=== PATIENT | female | born 1990 | race Caucasian/White ===

== ENCOUNTER → 2018-07-09 | Outpatient (CLI) | payer BC, MEDICAID, OTHER ==
[~2018-07-09] MED LIST: BIRTH CONTROL; BUPR150T6 PO; CEPH500C PO; IBP600T1 PO; PHEN95TA30; PREN1TAB39 PO; PRM25T PO; birth control pill PO; sulfa abx
--- NOTE | 2018-07-09 16:19 | Diagnostic Imaging Report ---
PROCEDURE: US OB SINGLE FETUS <14 WKS. TECHNIQUE: Multiple real-time grayscale images were obtained over the gravid uterus in various projections. INDICATION: dating. There is an intrauterine gestational sac containing a pole. Mundelein-rump length measurement is 2.3 cm consistent with 9 weeks 0 days gestation. Cardiac activity was measured at 163 beats per minute. No perigestational sac hemorrhage is seen. Gestational sac shape is within normal limits. Adnexal evaluation was performed. Ovaries are not visualized. No mass or free fluid is seen. IMPRESSION: Single live IUP 9 weeks 0 days gestational age. Estimated date of confinement sonographically is 02/11/2019. Dictated by: Dictated on workstation # [id number]
== END ==
LOC: RAD 13:38
PROVIDERS: ATTEND Family Medicine
DX: Z36.89 Encounter for other specified antenatal screening (principal); Z3A.09 9 weeks gestation of pregnancy
CPT/HCPCS: 76801

== ENCOUNTER → 2018-10-07 | Outpatient (CLI) | payer MEDICAID ==
--- NOTE | 2018-10-07 17:51 | Diagnostic Imaging Report ---
INDICATION: survey. TECHNIQUE: Multiple real-time grayscale images were obtained over the gravid uterus. COMPARISON: 07/09/2018. FINDINGS: There is a single live fetus in a breech presentation. heart rate was recorded at 137 beats per minute. The placenta is anterior. Amniotic fluid volume is normal. Cervical length is 4.1 cm. survey demonstrates kidneys, bladder, and stomach to be unremarkable. brain is unremarkable. There is a four-chamber heart. There is a three-vessel cord with normal insertion. The spine is unremarkable. Biometrical measurements are as follows: Biparietal 5.25 cm, age 22 weeks 0 days. Head circumference 19.78 cm, age 22 weeks 0 days. Abdominal circumference 17.23 cm, age 22 weeks 2 days. Femur length 3.58 cm, age 21 weeks 3 days. Sonographic estimate age: 22 weeks 0 days. Sonographic estimated date of delivery: 02/10/19. Estimated Weight: 454 gm (+/- 66 gm). LMP percentile: 42%. heart rate: 137 beats per minute. number: 1 of 1. IMPRESSION: Single live IUP at 22 weeks gestational age, showing normal interval growth when compared with exam from 07/09/2018. No complicating features are identified. Dictated by: Dictated on workstation # [id number]
== END ==
LOC: RAD 14:27
PROVIDERS: ATTEND Family Medicine
DX: Z36.89 Encounter for other specified antenatal screening (principal); Z3A.22 22 weeks gestation of pregnancy
CPT/HCPCS: 76805

== ENCOUNTER 2019-01-24 12:31 | Inpatient (IN) | payer MEDICAID ==
[2019-01-24] VITALS (43 sets, daily range): BP systolic 69–148; BP diastolic 58–103
[~2019-01-24] VITALS: Ht 152.4 cm; Wt 66.7 kg
--- NOTE | 2019-01-24 12:40 | NUR ---
EWA MCKENNA presented to unit via AMBULATION from ED, accompanied by S/O, with c/o CONTRACTIONS. EWA MCKENNA weighed, gowned, voided, and to bed. EFHM and TOCO applied, VS taken. EWA MCKENNA oriented to bed controls, call light, TV, heat, and A/C controls.
[2019-01-24] MEDS ORDERED: PREN-142 PO (13:12)
[2019-01-24 13:16] LABS: BILIRUBIN,URINE NEGATIVE (NEGATIVE); CLARITY,URINE CLEAR; COLOR,URINE YELLOW; GLUCOSE, URINE (UA) NEGATIVE (NEGATIVE); KETONES,URINE NEGATIVE (NEGATIVE); LEUKOCYTE ESTERASE ,URINE 1+ (NEGATIVE); NITRITE,URINE NEGATIVE (NEGATIVE); PH,URINE 6.5 (5-9); PROTEIN,URINE NEGATIVE (NEGATIVE); UROBILINOGEN,URINE NORMAL (NORMAL)
[2019-01-24 13:23] LABS: BACTERIA,URINE FEW /HPF; RBC,URINE RARE /HPF
[2019-01-24] MEDS ORDERED: FLU QUADRIvalent (5+ YOA) 2018-2019 (AFLURIA) 0.5 ML IM ONE (14:00)
[2019-01-24] MEDS ORDERED: D5 LR IV SOLUTION 1,000 ML IV ONE (16:32)
[2019-01-24] MEDS: D5 LR IV SOLUTION 1,000 ML IV SCH (16:42)
--- NOTE | 2019-01-24 17:14 | History & Physical-OB ---
OB - Chief Complaint & HPI Date/Time Date of Admission: Date of Admission: January 24, 2019 Date seen by a Provider: Jan 24, 2019 Time Seen by a Provider: 17:00 Chief Complaint/History OB-Reason for Admission/Chief: Onset of Labor Hx : 2 Hx Para: 1 Expected Date of Delivery: Feb 11, 2019 Gestational Age in Weeks: 37 Gestational Age in Days: 3 Admission Nurse Assessment Rev: Yes History of Labs GBS negative Allergies and Home Medications Allergies Coded Allergies: No Known Drug Allergies (Unverified , 07/07/09) Home Medications Bupropion Hcl 150 Mg Tab.sr.24h, 1 TAB PO DAILY, (Reported) Vit No.124/Iron/FA 1 Each Tablet, 1 TAB PO DAILY, (Reported) Patient Home Medication List Home Medication List Reviewed: Yes OB - History Hx of Present Care: Yes Ultrasounds: Normal mid trimester US Obstetrical Complications: None Medical Complications: None Obstetrical History Hx : 2 Hx Para: 1 Delivery History Hx Blood Disorders: No Patient Past Medical History No chronic medical problems Social History/Family History Recent Infectious Disease Expo: No Alcohol Use: Denies Use Recreational Drug Use: No OB - Admission Exam Physical Exam HEENT: Moist Membranes Heart: Rhythm Normal Lungs: Clear Abdomen: Gravid Reflexes: Normal Cervical Dilatation: 1cm Effacement: 75% Station: -3 Membranes: Intact Heart Rate: 130's Accelerations: Accelerations Present Decelerations: No Decelerations Short Term Variability: Present Senior Care Variability: Average (6-25) Contractions on Admission: < 5 Minutes Apart Intensity: Moderate Labs Laboratory Tests Test 01/24/19 13:05 Range/Units Urine Color YELLOW Urine Clarity CLEAR Urine pH 6.5 5-9 Urine Specific [place] 1.010 L 1.016-1.022 Urine Protein NEGATIVE NEGATIVE Urine Glucose (UA) NEGATIVE NEGATIVE Urine Ketones NEGATIVE NEGATIVE Urine Nitrite NEGATIVE NEGATIVE Urine Bilirubin NEGATIVE NEGATIVE Urine Urobilinogen NORMAL NORMAL MG/DL Urine Leukocyte Esterase 1+ H NEGATIVE Urine RBC (Auto) 1+ H NEGATIVE Urine RBC RARE /HPF Urine WBC 2-5 /HPF Urine Squamous Epithelial Cells 5-10 /HPF Urine Crystals NONE /LPF Urine Bacteria FEW H /HPF Urine Casts NONE /LPF Urine Mucus NEGATIVE /LPF Urine Culture Indicated CULTURE PENDING OB - Assessment/Plan/Diagnosis Assessment Assessment: active labor (at 37w3d gestation) Admission Dx 1. IUP at 37w3d gestation in labor Admission Status: Inpatient Order (span 2 midnights) Reason for Inpatient Admission: L&D Plan Plan: Expectant Management Other Plan AROM Pitocin if necessary Possible epidural GBS negative at 36 weeks. PHILIPP FROST MD Jan 24, 2019 17:14
[2019-01-24] MEDS ORDERED: MEPIVACAINE (CARBOCAINE) 2% 50 ML VIAL INJ PRN (17:45)
[2019-01-24] MEDS ORDERED: MINERAL OIL CONCENTRATE 99.9% 15 ML UDC TOP PRN (17:45)
[2019-01-24 17:46] LABS: BASOPHILS % (AUTO) 0 % (0-10); EOSINOPHILS % (AUTO) 0 % (0-10); HEMATOCRIT 35 % (35-52); HEMOGLOBIN 12.1 G/DL (11.5-16.0); LYMPHOCYTES # (AUTO) 2.6 X 10^3 (1.0-4.0); LYMPHOCYTES % (AUTO) 22 % (12-44); MEAN CORPUSCULAR HEMOGLOBIN 32 PG (25-34); MEAN CORPUSCULAR HGB CONC 34 G/DL (32-36); MEAN CORPUSCULAR VOLUME 92 FL (80-99); MEAN PLATELET VOLUME 11.5 FL (7.4-10.4); MONOCYTES # (AUTO) 0.9 X 10^3 (0.0-1.0); MONOCYTES % (AUTO) 8 % (0-12); NEUTROPHILS # (AUTO) 8.3 X 10^3 (1.8-7.8); NEUTROPHILS % (AUTO) 70 % (42-75); PLATELET COUNT 234 10^3/uL (130-400); RED CELL DISTRIBUTION WIDTH 13.1 % (10.0-14.5); WHITE BLOOD COUNT 11.8 10^3/uL (4.3-11.0)
--- OUTSIDE RECORDS SUMMARY | 2019-01-24 18:19 | XMS REPORT ---
Author Author SANDEEP SAUCEDA Organization [facility] Address [address] [place] [address] Care Team Providers Care Pan Operator Name Role Phone SANDEEP SAUCEDA Unavailable PROBLEMS Unknown Problems ALLERGIES No Information ENCOUNTERS Encounter Location Date Diagnosis [facility] [address] [facility] [id number] [address] Jun, Encounter for test, result unknown Z32.00 [facility] [address] [facility] [id number] [address] Nov, IMMUNIZATIONS No Known Immunizations SOCIAL HISTORY Never Assessed REASON FOR VISIT test (walk-in) PLAN OF CARE VITAL SIGNS MEDICATIONS Unknown Medications RESULTS Name Result Date Reference Range TEST, URINE (IN HOUSE) 2018-06-18 RESULTS Positive Lot # [id number] Control + Exp date 11/2019 PROCEDURES No Known procedures INSTRUCTIONS MEDICATIONS ADMINISTERED No Known Medications
--- OUTSIDE RECORDS SUMMARY | 2019-01-24 18:19 | XMS REPORT | Continuity of Care Document ---
Demographics Preferred Language Unknown Marital Status Unknown Moravian Affiliation Unknown Race Unknown Ethnic Group Unknown Author Author [facility] Address Unknown Phone Unavailable Allergies Active Description Code Type Severity Reaction Onset Reported/Identified Relationship to Patient Clinical Status Yes No Known Drug Allergies [id number] Drug Allergy Mild N/A 07/07/2009 Medications There is no data. Problems Date Dx Coded Attending Type Code Diagnosis Diagnosed By 02/03/2012 Ot 599.0 URIN TRACT INFECTION NOS 02/03/2012 Ot 646.63 INFECTION -ANTEPARTUM 02/19/2012 Ot 079.4 HUMAN PAPILLOMA VIRUS 02/19/2012 Ot 647.61 OTH VIRAL DIS-DELIVERED 02/19/2012 Ot V06.1 DIPHTHERIA- TETANUS-PERTUSSIS, COMBINED [ 02/19/2012 Ot V27.0 DELIVER- SINGLE LIVEBORN 12/10/2016 Ot 625.8 FEM GENITAL SYMPTOMS NEC 12/10/2016 Ot 646.83 PREG COMPL NEC-ANTEPART 07/12/2018 PHILIPP FROST MD Ot Z36.89 ENCOUNTER FOR OTHER SPECIFIED 07/12/2018 PHILIPP FROST MD, Ot Z3A.09 9 WEEKS GESTATION OF 07/15/2018 PHILIPP FROST MD Ot Z36.89 ENCOUNTER FOR OTHER SPECIFIED 07/15/2018 PHILIPP FROST MD, Ot Z3A.09 9 WEEKS GESTATION OF 07/26/2018 PHILIPP FROST MD Ot Z36.89 ENCOUNTER FOR OTHER SPECIFIED 07/26/2018 PHILIPP FROST MD, Ot Z3A.09 9 WEEKS GESTATION OF 07/26/2018 PHILIPP FROST MD Ot Z36.89 ENCOUNTER FOR OTHER SPECIFIED 07/26/2018 PHILIPP FROST MD, Ot Z3A.09 9 WEEKS GESTATION OF 08/04/2018 PHILIPP FROST MD, Ot Z36.89 ENCOUNTER FOR OTHER SPECIFIED 08/04/2018 PHILIPP FROST MD, Ot Z3A.09 9 WEEKS GESTATION OF 10/11/2018 PHILIPP FROST MD, Ot Z36.89 ENCOUNTER FOR OTHER SPECIFIED 10/11/2018 PHILIPP FROST MD, Ot Z3A.22 22 WEEKS GESTATION OF 10/29/2018 PHILIPP FROST MD, Ot Z36.89 ENCOUNTER FOR OTHER SPECIFIED 10/29/2018 PHILIPP FROST MD, Ot Z3A.22 22 WEEKS GESTATION OF Procedures Code Description Performed By Performed On 73.59 MANUAL ASSIST DELIV NEC 02/17/2012 Results There is no data. Encounters ACCT No. Visit Date/Time Discharge Status Pt. Type Provider Facility Loc./Unit Complaint [id number] 11/28/2012 15:36:46 RECURRING [id number] 10/07/2018 14:27:00 10/07/2018 23:59:59 CLS Outpatient PHILIPP FROST MD [facility] RAD SURVEY [id number] 07/09/2018 13:38:00 07/09/2018 23:59:59 CLS Outpatient PHILIPP FROST MD [facility] RAD DATES [id number] 02/17/2012 16:58:00 Document Registration [id number] 02/03/2012 08:45:00 Document Registration [id number] 06/24/2011 15:36:00 Document Registration
[2019-01-24] MEDS ORDERED: OXYTOCIN/NORMAL SALINE 500 ML IV SCH (18:34)
[2019-01-24] MEDS ORDERED: SUFENTA 0.6MCG/ML BUPIVA 0.125 100 ML ONE (18:52)
[2019-01-24] MEDS ORDERED: fentaNYL INJECTION 100 MCG/2 ML AMP ONE (20:33)
[2019-01-24] MEDS ORDERED: LIDOCAINE PF 2% 5 ML (XYLOCAINE) VIAL ONE ×3 (20:33→21:49)
[2019-01-24] MEDS ORDERED: BUPIVACAINE 0.25% 30 ML (SENSORCAINE) VIAL ONE (20:33)
[2019-01-24] MEDS ORDERED: CATHETER FLUSH 10 ML SYR IV SCH (22:00)
[2019-01-24] MEDS ORDERED: LACTATED RINGERS 1,000 ML IV SCH (22:12)
[2019-01-24] MEDS ORDERED: diphenhydrAMINE 50 MG/ML INJ (BENADRYL) IV PRN (22:15)
[2019-01-24] MEDS ORDERED: ONDANSETRON 4 MG/2 ML (SDV) Z0FRAN IV PRN (22:15)
[2019-01-24] MEDS ORDERED: NALOXONE 0.4 MG/ML 1 ML (NARCAN) VIAL IV PRN (22:15)
[2019-01-24] MEDS ORDERED: EPIDURAL (SUFENTA 0.6MCG/ML BUPIVA 0.125%) 100 ML BAG EPI PRN (22:15)
--- NOTE | 2019-01-24 22:17 | NUR ---
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 Procedure explained, consent reviewed and signed by anesthesia. Questions answered to patient's satisfaction. Time out taken to verify correct patient/procedure. Patient up to side of bed, assisted into sitting position. Betadine prep done x3 and sterile drape applied. Local done, see anesthesia record. Test dose given, see anesthesia record for drug and dosage. Epidural catheter secured in place. Epidural placement complete. Assisted back into bed, monitors adjusted. Epidural dosed, see anesthesia record. Epidural of Sufenta/Bupvicaine @___10___cc/hr stated per pump. Patient tolerated procedure well.
[2019-01-25] VITALS (19 sets, daily range): BP systolic 122–184; BP diastolic 60–95
[2019-01-25] MEDS: D5 LR IV SOLUTION 1,000 ML IV SCH (00:15)
[2019-01-25] MEDS ORDERED: OXYTOCIN/NORMAL SALINE 500 ML IV SCH (02:08)
--- NOTE | 2019-01-25 02:08 | OB Labor & Delivery Record ---
L&D History Date of Service Date of Service: Jan 25, 2019 History Expected Date of Delivery: Feb 11, 2019 Gestational Age in Weeks: 37 Hx : 2 Hx Para: 2 Complications Events: Routine care Operative Indications (Cesarea: N/A-Vaginal Delivery Intrapartal Events: None L&D Stage1 Stage One Onset of Labor - Date: Jan 25, 2019 Monitors and Tracing Monitor Mode: Internal Heart Rate: 130 Monitor Accelerations: Uniform Monitor Decelerations: None Station: -1 Alf Variability: Average (6-10) Short Term Variability: Present Presentation: Vertex Vital Signs VS - Last 72 Hours, by Label 01/24/19 01/24/19 01/24/19 01/24/19 12:50 13:45 14:30 15:10 Temp 98.2 Pulse 100 78 80 107 Resp 18 18 18 18 B/P (MAP) 130/88 (102) 145/103 (117) 124/81 (95) 135/95 (108) O2 Delivery Room Air Room Air Room Air Room Air 01/24/19 01/24/19 01/24/19 01/24/19 15:55 16:40 17:30 18:00 Pulse 85 86 82 81 Resp 18 18 18 18 B/P (MAP) 127/86 (100) 139/82 (101) 126/84 (98) 132/92 (105) O2 Delivery Room Air Room Air Room Air Room Air 01/24/19 01/24/19 01/24/19 01/24/19 18:30 19:00 19:10 19:30 Pulse 93 96 90 87 Resp 18 18 18 18 B/P (MAP) 132/77 (95) 139/80 (99) 139/85 (103) 129/85 (100) O2 Delivery Room Air Room Air Room Air Room Air 01/24/19 01/24/19 01/24/19 01/24/19 19:40 19:55 20:10 20:40 Pulse 82 82 71 89 Resp 18 18 18 18 B/P (MAP) 133/72 (92) 131/75 (93) 132/76 (94) 129/88 (102) Pulse Ox 98 O2 Delivery Room Air Room Air Room Air Room Air 01/24/19 01/24/19 01/24/19 01/24/19 20:50 21:25 21:28 21:35 Temp 99.4 Pulse 85 109 92 105 Resp 18 18 18 18 B/P (MAP) 133/86 (102) 127/84 (98) 127/87 (100) 126/87 (100) Pulse Ox 97 97 97 97 O2 Delivery Room Air Room Air Room Air Room Air 01/24/19 01/24/19 01/24/19 01/24/19 21:37 21:41 21:44 21:47 Pulse 105 96 100 103 Resp 18 18 18 18 B/P (MAP) 131/87 (102) 130/77 (94) 124/76 (92) 127/80 (96) Pulse Ox 95 98 98 97 O2 Delivery Room Air Room Air Room Air Room Air 01/24/19 01/24/19 01/24/19 01/24/19 21:50 21:53 21:58 22:00 Temp 100.3 Pulse 113 96 78 90 Resp 18 18 18 18 B/P (MAP) 135/86 (102) 148/91 (110) 135/99 (111) 128/88 (101) Pulse Ox 97 97 98 97 O2 Delivery Room Air Room Air Room Air Room Air 01/24/19 01/24/19 01/24/19 01/24/19 22:03 22:06 22:09 22:12 Pulse 110 94 87 97 Resp 18 18 18 18 B/P (MAP) 128/58 (81) 125/75 (92) 133/76 (95) 122/71 (88) Pulse Ox 97 97 97 97 O2 Delivery Room Air Room Air Room Air Room Air 01/24/19 01/24/19 01/24/19 01/24/19 22:15 22:20 22:25 22:30 Pulse 94 82 78 89 Resp 18 18 18 18 B/P (MAP) 132/85 (101) 135/73 (93) 69/74 (72) 120/74 (89) Pulse Ox 97 98 98 98 O2 Delivery Room Air Room Air Room Air Room Air 01/24/19 01/24/19 01/24/19 01/24/19 22:35 22:40 22:45 23:00 Pulse 82 90 76 74 Resp 18 18 18 18 B/P (MAP) 136/67 (90) 122/72 (89) 120/74 (89) 120/70 (87) Pulse Ox 97 98 96 96 O2 Delivery Room Air Room Air Room Air Room Air 01/24/19 01/24/19 01/24/19 01/25/19 23:15 23:30 23:45 00:00 Temp 97.9 Pulse 85 85 83 97 Resp 18 18 18 18 B/P (MAP) 120/78 (92) 121/79 (93) 116/79 (91) 136/87 (103) Pulse Ox 98 97 96 97 O2 Delivery Room Air Room Air Room Air Room Air 01/25/19 01/25/19 00:15 00:30 Pulse 98 97 Resp 18 18 B/P (MAP) 131/93 (106) 136/95 (109) Pulse Ox 97 98 O2 Delivery Room Air Room Air Signs of Distress by FHT Signs of Distress no Rupture of Membranes Spontaneous Ruture of Membrane: No Amniotic Membrane Rupture Time: 1701 Amniotic Membrane Fluid Desc.: Clear Amniotic Fluid Membrane Tests: Nitrazine Negative Induction/Anesthesia Epidural Cath Placement - Time: 2150 L&D Stage2 Stage Two Stage II Date: Jan 25, 2019 Stage II Time: 01:40 Monitors and Tracing Monitor Mode: Internal Heart Rate: 130 Monitor Accelerations: Uniform Monitor Decelerations: None Wire Brusher Variability: Average (6-10) Position: Left Occiput Anterior Presentation: Vertex Signs of Distress by FHT Signs of Distress no Cord Descript/Complications Cord Vessel Description: 3 Vessels Delivery Type Delivery Method: Spontaneous Vaginal Anterior Shoulder: Left Episiotomy/Perineal Laceration Laceraction(s)/Extensions: No Condition of Infant Delivery 1 minute Comment: 9 5 minute Comment: 9 Condition of Condition of Infant: Living Exam: No Observed Abnormalities Resuscitation Resuscitation: N/A - Spontaneous Resp L&D Stage3 Stage Three Stage III Date: Jan 25, 2019 Stage III Time: 17:44 Pictocin Pitocin Administration mu/min: 14 Pitocin ml/hr: 14 Placenta Delivery Placenta Delivery: Spontaneous Delivery Summary Summary Estimated blood loss (mL): 150 Condition of Delivery Examined: Cervix Examined Post Hemorrhage: No Intervention Required none PHILIPP FROST MD Jan 25, 2019 02:08
[2019-01-25] MEDS ORDERED: BENZOCAINE/MENTHOL (DERMOPLAST) 56 ML CAN TP PRN (02:15)
[2019-01-25] MEDS ORDERED: MEASLES,MUMPS,RUBELLA 1 EA INJ SQ ONE (02:15)
[2019-01-25] MEDS ORDERED: WITCH HAZEL(TUCKS) 40 EA JAR TOP PRN (02:15)
[2019-01-25] MEDS ORDERED: TETANUS,DIPTH,PERTUSS P/F (BOOSTRIX) 0.5 ML VIAL IM ONE ×2 (02:15→17:41)
[2019-01-25] MEDS: IBUPROFEN 600 MG (MOTRIN) TAB PO SCH ×4 (03:08→23:36)
[2019-01-25] MEDS ORDERED: CATHETER FLUSH 10 ML SYR IV SCH (06:00)
--- NOTE | 2019-01-25 07:00 | NUR ---
REPORT FROM MAYUR AVILA
--- NOTE | 2019-01-25 08:30 | NUR ---
INITIAL ASSESSMENT COMPLETED, VSS, NO DISTRESS NOTED, SEE INTERVENTIONS FOR DETAILED ASSESSMENT. PLAN OF CARE UPDATED WITH PT/SO, NO QUESTIONS NOTED, REMAINS IN ROOM WITH PARENTS.
--- NOTE | 2019-01-25 08:42 | Anesthesia-Regional Post-Op ---
Regional Patient Condition Mental Status: Alert, Oriented x3 Circulation: Same as Pre-Op Headache: Absent Sensation: Full Recovery Motor Block: Absent Post Op Complications Complications None Follow Up Care/Instructions Patient Instructions None needed. Anesthesia/Patient Condition Patient is doing well, no complaints, stable vital signs, no apparent adverse anesthesia problems. No complications reported per nursing. D/C [place] [facility] [place]: CHEO Fountain CRNA Jan 25, 2019 08:42
--- NOTE | 2019-01-25 11:30 | NUR ---
PT RESTING IN NO C/O NOTED, REQUESTING HELP WITH , MARIA TERESA NOTIFIED.
--- NOTE | 2019-01-25 15:15 | NUR ---
pt report received by rose spivey rn at this time.
--- NOTE | 2019-01-25 15:30 | NUR ---
this rn introduces self to pt and so at this time. physical assessment complete. questions answered. pt denies needs at this time. call light within reach.
[2019-01-25] MEDS: HYDROcodone/APAP 5 MG/325 MG (LORTAB) TAB PO PRN ×2 (16:00→20:46)
[2019-01-25] MEDS ORDERED: MEASLES,MUMPS,RUBELLA 1 EA INJ ONE (17:41)
[2019-01-26] MEDS: IBUPROFEN 600 MG (MOTRIN) TAB PO SCH ×2 (05:57→12:45)
[2019-01-26 05:58] VITALS: BP 125/89
[2019-01-26 06:18] LABS: BASOPHILS # (AUTO) 0.1 10^3/uL (0.0-0.1); BASOPHILS % (AUTO) 1 % (0-10); EOSINOPHILS # (AUTO) 0.2 10^3/uL (0.0-0.3); EOSINOPHILS % (AUTO) 1 % (0-10); HEMATOCRIT 36 % (35-52); HEMOGLOBIN 12.1 G/DL (11.5-16.0); LYMPHOCYTES # (AUTO) 3.9 X 10^3 (1.0-4.0); LYMPHOCYTES % (AUTO) 29 % (12-44); MEAN CORPUSCULAR HEMOGLOBIN 31 PG (25-34); MEAN CORPUSCULAR HGB CONC 34 G/DL (32-36); MEAN CORPUSCULAR VOLUME 92 FL (80-99); MEAN PLATELET VOLUME 10.6 FL (7.4-10.4); MONOCYTES # (AUTO) 0.9 X 10^3 (0.0-1.0); MONOCYTES % (AUTO) 7 % (0-12); NEUTROPHILS # (AUTO) 8.3 X 10^3 (1.8-7.8); NEUTROPHILS % (AUTO) 62 % (42-75); PLATELET COUNT 207 10^3/uL (130-400); RED CELL DISTRIBUTION WIDTH 13.1 % (10.0-14.5); WHITE BLOOD COUNT 13.3 10^3/uL (4.3-11.0)
[2019-01-26] MEDS ORDERED: IBUP-844 PO (07:24)
--- NOTE | 2019-01-26 07:26 | Discharge Inst-Women's Service ---
Discharge Inst-Women's Serv Depart Medication/Instructions New, Converted or Re-Newed RX: RX on Chart Consults/Follow Up Additional Follow Up: Yes (Dr Frost in 6 weeks) Activity Activity: Activity as Tolerated Driving Instructions: You May Drive Nothing Inside Vagina: No [place] (for 6 weeks) Diet Discharge Diet: Regular Diet Return to The Hospital For: as below Symptoms to Report to : Bleeding Excessive, Pain Increased, Fever Over 101 Degrees F, Vaginal Discharge Foul For Any Problems or Questions: Contact Your Physician PHILIPP FROST MD Jan 26, 2019 07:26
--- NOTE | 2019-01-26 07:30 | Discharge Summary ---
Diagnosis/Chief Complaint Date of Admission Jan 24, 2019 at 16:01 Date of Discharge January 26, 2019 Discharge Date: Jan 26, 2019 Discharge Time: 11:00 Admission Diagnosis Admission Diagnosis 1. Intrauterine at 37 weeks gestation Discharge Diagnosis 1. Intrauterine at 37 weeks gestation Reason Hospital Visit 28-year-old 2 now term to L2 white female who initially presents to labor and delivery during the afternoon of January 24, 2019 in labor. She was with intact membranes and noted to be at 37 weeks 3 days gestation. Her GBS status at 36 weeks was noted to be negative. Her contraction pattern had been regular and started earlier in the day of January 24, 2019. Discharge Summary-OBS Procedures 1. Epidural per anesthesia 2. Spontaneous vaginal delivery Discharge Physical Examination Allergies: Coded Allergies: No Known Drug Allergies (Unverified , 07/07/09) Vitals & I&Os Vital Signs Date Time Temp Pulse Resp B/P (MAP) Pulse Ox O2 Delivery O2 Flow Rate FiO2 01/26/19 05:58 97.4 72 18 125/89 (101) 97 Room Air General Appearance: No Acute Distress Respiratory: Clear to Auscultation Cardiovascular: Regular Rate Abdominal: Soft (With uterus firm) Skin: No Rashes Hospital Course Following admission she underwent routine labor coarse. She received epidural per anesthesia and tolerated well. She required low-dose Pitocin augmentation. She had received artificial rupture of membranes early in her labor course. Fluid was noted to be clear. Ultimately she went on to deliver at 01 40 on January 25, 2019. Patient delivered a term viable male with Apgars of 9 at 1 minute and 9 at 5 minutes. Following delivery patient underwent routine care orders. She was noted have no consultations during the remainder of hospital stay. She tolerated regular diet. Her hemoglobin today after delivery was 12.1 compared to her admission hemoglobin of 12.1. She was without any dizziness or shortness of breath. Patient was felt ready for dismissal during the morning of January 26, 2019. Pending Labs Laboratory Tests 01/26/19 05:45: White Blood Count 13.3, Red Blood Count 3.87, Hemoglobin 12.1, Hematocrit 36, Mean Corpuscular Volume 92, Mean Corpuscular Hemoglobin 31, Mean Corpuscular Hemoglobin Concent 34, Red Cell Distribution Width 13.1, Platelet Count 207, Mean Platelet Volume 10.6, Neutrophils (%) (Auto) 62, Lymphocytes (%) (Auto) 29 , Monocytes (%) (Auto) 7, Eosinophils (%) (Auto) 1, Basophils (%) (Auto) 1, Neutrophils # (Auto) 8.3, Lymphocytes # (Auto) 3.9, Monocytes # (Auto) 0.9, Eosinophils # (Auto) 0.2, Basophils # (Auto) 0.1 Discharge Instructions to patient/family Please see electronic discharge instructions given to patient. Discharge Medications Reviewed and agree with Discharge Medication list on patient's Discharge Instruction sheet Clinical Quality Measures DVT/VTE Risk/Contraindication: Risk Factor Score Per Nursin RFS Level Per Nursing on Admit: 1=Low/No VTE PPX PHILIPP FROST MD Jan 26, 2019 07:30
[2019-01-26 08:00] VITALS: BP 117/75
--- NOTE | 2019-01-26 08:02 | NUR ---
this rn at bedside. assessment complete, vss. no needs at this time. call light within reach
[2019-01-26] MEDS: HYDROcodone/APAP 5 MG/325 MG (LORTAB) TAB PO PRN ×2 (08:58→12:45)
--- NOTE | 2019-01-26 09:51 | Anesthesia-Regional Post-Op ---
Regional Patient Condition Mental Status: Alert, Oriented x3 Circulation: Same as Pre-Op Headache: Present (present, but improved with medication) Sensation: Full Recovery Motor Block: Absent Post Op Complications Complications None Follow Up Care/Instructions Patient Instructions None needed. Anesthesia/Patient Condition Pt re-assessed after morning rounds by ALANNA. Pt reported to student that she was now developing a stiff neck, and a postural headache after catheter was discontinued yesterday afternoon. Upon entering patient's room, found her to be sitting up in bed cross legged, in no apparent distress. Discussed her symptoms , which she said now had improved following oral administration of pain medication. Explained PDPH to her, and possibility of epidural blood patch to alleviate symptoms, should they worsen. Pt is scheduled to discharge later this morning, and after discussion is in agreement that her symptoms are tolerable at this time. Instructed her to follow up with us if needed. D/C home per [facility] [place] Criteria: JV Jose CRNA Jan 26, 2019 09:51
[2019-01-26 12:00] VITALS: BP 127/89
--- NOTE | 2019-01-26 13:25 | NUR ---
THIS RN DISCUSSES AND EXPLAINS DC INSTRUCTIONS AT THIS TIME. QUESTIONS ANSWERED.
== END 2019-01-26 14:25 | disposition home or self-care (01) | DRG 807 ==
LOC: WSo 12:31 → LDRP 12:32 → WSo 16:01 → LDRP 16:01
PROVIDERS: ADMIT Family Medicine; ATTEND Family Medicine
PROC: 10E0XZZ Delivery of Products of Conception, External Approach (ICD-10-PCS; principal; 2019-01-25)
DX: O80 Encounter for full-term uncomplicated delivery (principal); Z3A.37 37 weeks gestation of pregnancy; Z37.0 Single live birth
CPT/HCPCS: 36415; 81000; 85025; 86850; 86900; 86901; 87088; 88307; 90707; 90715; 99212

== ENCOUNTER → 2021-06-28 | Outpatient (CLI) | payer MEDICAID ==
[~2021-06-28] MED LIST changes: +IBUP-844 PO; +PREN-142 PO
--- NOTE | 2021-06-28 10:39 | Diagnostic Imaging Report ---
PROCEDURE: US OB SINGLE FETUS <14 WKS. TECHNIQUE: Multiple real-time grayscale images were obtained over the gravid uterus in various projections. INDICATION: dating. FINDINGS: Adams intrauterine gestation is identified with normal morphology of gestational sac. pole is present with crown-rump length of 2 cm indicating gestational age of 8 weeks and 5 days. Irregular cardiac activity is present with a rate 175 bpm. There is no evidence of belinda-gestational hematoma. No maternal adnexal region abnormality is identified. IMPRESSION: Unremarkable early intrauterine gestation with estimated age of 8 weeks and 4 days. Sonographic EDC is 02/03/2022. Dictated by: Dictated on workstation # [id number]
== END ==
LOC: RAD 10:00
PROVIDERS: ATTEND Family Medicine
DX: Z34.91 Encounter for supervision of normal pregnancy, unspecified, first trimester (principal); Z3A.08 8 weeks gestation of pregnancy
CPT/HCPCS: 76801

== ENCOUNTER 2021-08-01 13:02 | Emergency (ER) | payer MEDICAID ==
[~2021-08-01] VITALS: Ht 152.4 cm; Wt 45.0 kg
--- NOTE | 2021-08-01 13:30 | ED GU-Female ---
General Stated Complaint: PELVIC PAIN/PRESSURE 13 WKS Source: patient Exam Limitations: no limitations History of Present Illness Date Seen by Provider: Aug 01, 2021 Time Seen by Provider: 13:13 Initial Comments Here with report of inability to urinate. States that she works nights. She woke up at about 1030 and felt like she had to urinate but could not. She has tried multiple times since then but has been unable to produce urine. She states she feels significant fullness in her lower abdomen and it started to become quite painful. She is 13 weeks . Denies significant medical problems. She is currently taking cephalexin for sinus infection. She is vaccinated for COVID-19. Timing/Duration: this morning Severity/Quality: moderate Location: suprapubic Radiation: none Activities at Onset: none Associated Symptoms: abdominal pain; No dysuria, No fever/chills, No nausea/vomiting Allergies and Home Medications Allergies Coded Allergies: No Known Drug Allergies (Unverified , 07/07/09) Patient Home Medication List Home Medication List Reviewed: Yes Ibuprofen (Ibu) 600 Mg Tablet, 600 MG PO Q6H Prescribed by: PHILIPP FROST on 01/26/19 0724 Vit No.124/Iron/FA ( Vitamin Tablet) 1 Each Tablet, 1 TAB PO DAILY, (Reported) Entered as Reported by: CUCA HAWTHORNE on 01/24/19 1312 Review of Systems Review of Systems Constitutional: see HPI; No chills, No fever Respiratory: no symptoms reported Cardiovascular: no symptoms reported Gastrointestinal: see HPI Genitourinary: pain, urgency Musculoskeletal: No back pain, No muscle pain Skin: no symptoms reported Past Skxzcdo-Lajcyx-Ysbzic Hx Patient Social History Tobacco Use?: No Substance use?: No Alcohol Use?: No Past Medical History Surgeries: Yes Orthopedic, Tonsillectomy Respiratory: No Cardiac: No Neurological: No : Yes 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 Physical Exam Vital Signs Vital Signs - First Documented 08/01/21 13:33 Temp 36.6 Pulse 94 Resp 18 B/P (MAP) 121/89 (100) Pulse Ox 100 O2 Delivery Room Air Capillary Refill : Height, Weight, BMI Height: 5'0.00" Weight: 147lbs. 0.0oz. 66.747713tz; 28.7 BMI Method:Stated General Appearance: WD/WN, mild distress Neck: non-tender, full range of motion, supple, normal inspection Cardiovascular: regular rate, rhythm, no murmur Respiratory: lungs clear, normal breath sounds Gastrointestinal: soft, other (Palpable distended bladder) Neurologic/Psychiatric: alert, oriented x 3 Skin: normal color, warm/dry Progress/Results/Core Measures Suspected Sepsis SIRS Temperature: Pulse: Respiratory Rate: Blood Pressure / Mean: Results/Orders Lab Results Laboratory Tests Test 08/01/21 13:28 Range/Units Urine Color YELLOW Urine Clarity CLEAR Urine pH 7.0 5-9 Urine Specific [place] <=1.005 1.016-1.022 Urine Protein NEGATIVE NEGATIVE Urine Glucose (UA) NEGATIVE NEGATIVE Urine Ketones NEGATIVE NEGATIVE Urine Nitrite NEGATIVE NEGATIVE Urine Bilirubin NEGATIVE NEGATIVE Urine Urobilinogen 0.2 < = 1.0 MG/DL Urine Leukocyte Esterase TRACE H NEGATIVE Urine RBC (Auto) TRACE-I NEGATIVE Urine RBC 0-2 /HPF Urine WBC RARE /HPF Urine Squamous Epithelial Cells 0-2 /HPF Urine Crystals NONE /LPF Urine Bacteria TRACE /HPF Urine Casts NONE /LPF Urine Mucus NEGATIVE /LPF Urine Culture Indicated NO My Orders Orders - JOCY BUNN MD Ua Culture If Indicated (08/01/21 13:23) Catheter(Urinary) Insert & Ass 03,15 (08/01/21 13:23) Vital Signs/I&O 08/01/21 13:33 Temp 36.6 Pulse 94 Resp 18 B/P (MAP) 121/89 (100) Pulse Ox 100 O2 Delivery Room Air Capillary Refill : Progress Note : Progress Note Seen and evaluated. Bedside ultrasound performed which shows grossly distended urinary bladder. Positive movement and positive heart tones noted although unable to get accurate heart rate due to significant distention of the bladder and tenderness during ultrasound exam due to the bladder distention. Hall catheter and UA ordered. We will repeat bedside testing after to evaluate for heart tones. Monitor patient. 1400: Approximately 700 mL of clear urine out. UA processed and does not show any urinary tract infection. Patient feels much better currently. Reevaluation of bedside ultrasound shows heart tones of approximately 150 with positive movement and 13-3/7 by femur length. We will allow the catheter to stay in for another 15 or 20 minut es and then remove. Unsure of inciting event but patient has not had problems previously. This may be just related to and/or medications. She does report that the baby seems to sit lower in her pelvis this time as this is her third . I will send a copy of the chart to Dr. Frost. 1430: Patient much better. Discharged home with return precautions. Patient verbalized understanding instructions and agreement with plan. Departure Impression Primary Impression: Urinary retention Disposition: HOME, SELF-CARE Condition: Improved Departure-Patient Inst. Decision time for Depature: 14:02 Referrals: PHILIPP FROST MD (PCP/Family) Primary Care Physician Patient Instructions: Urinary Retention (DC) Add. Discharge Instructions: Follow-up with your doctor for recheck and further evaluation. Drink plenty of fluids. Minimize caffeinated beverages. Return for worse pain, fever, vomiting, difficulty with urination, weakness, breathing problems or other concerns as needed. Copy Copies To 1: PHILIPP FROST MD, TIMOTHY D MD Aug 01, 2021 13:30
[2021-08-01 13:41] LABS: BILIRUBIN,URINE NEGATIVE (NEGATIVE); CLARITY,URINE CLEAR; COLOR,URINE YELLOW; GLUCOSE, URINE (UA) NEGATIVE (NEGATIVE); KETONES,URINE NEGATIVE (NEGATIVE); LEUKOCYTE ESTERASE ,URINE TRACE (NEGATIVE); NITRITE,URINE NEGATIVE (NEGATIVE); PROTEIN,URINE NEGATIVE (NEGATIVE)
[2021-08-01 13:51] LABS: BACTERIA,URINE TRACE /HPF; RBC,URINE 0-2 /HPF; SQUAMOUS EPITHELIAL CELL,UR 0-2 /HPF; WBC,URINE RARE /HPF
[2021-08-01 17:31] VITALS: BP 111/69
== END 2021-08-01 14:32 | disposition home or self-care (01) ==
LOC: EDUNIT# 13:02 → ER 13:04
DX: O26.891 Other specified pregnancy related conditions, first trimester (principal); R33.9 Retention of urine, unspecified; Z3A.13 13 weeks gestation of pregnancy
CPT/HCPCS: 51702; 81000

== ENCOUNTER 2021-08-03 18:37 | Emergency (ER) | payer MEDICAID ==
[~2021-08-03] VITALS: Ht 152 cm; Wt 47.6 kg
--- OUTSIDE RECORDS SUMMARY | 2021-08-03 18:43 | XMS REPORT | Clinical Summary ---
Author Author [facility] Organization [facility] Address Unknown Phone Unavailable Care Team Providers Care Family Intervention Specialist Name Role Phone PCP Unavailable Source Comments [facility] (Labor and Delivery) documents do not appear in the [facility] Allergies Not on File Medications Please verify current medications with patient. Not on file Active Problems Not on file Social History Date Tobacco Use Types Packs/Day Years Used Never Assessed Sex Assigned at Date Recorded Not on file Last Filed Vital Signs Not on file Plan of Treatment Health Maintenance Due Date Last Done Comments HPV/Cotest 1992 COVID-19 Vaccine (1) 2004 Cervical Cancer Screening 2013 Pap Smear 2013 Influenza Vaccine (#1) 2021 HPV Vaccine Aged Out No longer eligible based on patient's age to complete this topic Pneumococcal Vaccine: Aged Out No longer eligib le based on patient's age to Pediatrics (0 to 5 Years) complete this topic and At-Risk Patients (6 to 64 Years) Results Not on filefrom Last 3 Months
[2021-08-03 19:10] LABS: BILIRUBIN,URINE NEGATIVE (NEGATIVE); CLARITY,URINE CLEAR; COLOR,URINE YELLOW; GLUCOSE, URINE (UA) TRACE (NEGATIVE); KETONES,URINE NEGATIVE (NEGATIVE); LEUKOCYTE ESTERASE ,URINE NEGATIVE (NEGATIVE); NITRITE,URINE NEGATIVE (NEGATIVE); PROTEIN,URINE NEGATIVE (NEGATIVE)
[2021-08-03 19:18] LABS: HEMATOCRIT 34 % (35-52); MEAN CORPUSCULAR HEMOGLOBIN 32 pg (25-34); MEAN CORPUSCULAR HGB CONC 35 g/dL (32-36); MEAN CORPUSCULAR VOLUME 91 fL (80-99); MEAN PLATELET VOLUME 9.2 fL (9.0-12.2); PLATELET COUNT 324 10^3/uL (130-400); WHITE BLOOD COUNT 14.6 10^3/uL (4.3-11.0)
--- NOTE | 2021-08-03 19:26 | ED GU-Female ---
General Chief Complaint: OB < 20 WEEKS Stated Complaint: 13 WKS PREG/BLOOD WHEN WIPING Source: patient History of Present Illness Date Seen by Provider: Aug 03, 2021 Time Seen by Provider: 18:51 Initial Comments PT ARRIVES VIA POV FROM HOME PT WAS HERE Thursday08/01/21 FOR URINARY RETENTION PT STATES SHE HAS CONTINUED TO "DRIBBLE" SMALL AMOUNTS, AND FEELS LIKE BLADDER IS FULL ALL THE TIME, AND HAS SENSATION THAT SHE NEEDS TO URINATE ALL THE TIME NO PAIN OR BURNING ON URINATION NO FEVER--STATES HER TEMP HAS BEEN 99 FOR HER ENTIRE NO NAUSEA/VOMITING HAS BEEN HAVING CONSTIPATION, WITH LAST BM 3 DAYS AGO, AND PASSING SMALL HARD PORFIRIO PT IS 13 WEEKS , WITH LMP THE END OF APRIL, BUT DID NOT HAVE PERIOD FOR 2 MONTHS PRIOR TO THAT HAS HAD A ULTRASOUND FOR DATING PT SAW DR. FROST FOR OB VISIT 07/15/21 AND NEXT APPOINTMENT IS 08/12/21 HAS NOT ATTEMPTED TO CONTACT HIM FOR THIS CURRENT PROBLEM PT STATES SHE HAD A TINY SPOT OF BLOOD ON TISSUE WITH WIPING THIS AM, NONE SINCE NO VAGINAL DISCHARGE HAD A FEW MINOR SHARP PAINS IN LOWER ABDOMEN EARLIER, BUT NOT NOW PT IS AB 0 LAST DELIVERY IN 2019. PT HAS HAD BOTH COVID-19 VACCINES IN DECEMBER 2020 PCP: DR. FROST Allergies and Home Medications Allergies Coded Allergies: No Known Drug Allergies (Unverified , 07/07/09) Patient Home Medication List Ibuprofen (Ibu) 600 Mg Tablet, 600 MG PO Q6H Prescribed by: PHILIPP FROST on 01/26/19 0724 Vit No.124/Iron/FA ( Vitamin Tablet) 1 Each Tablet, 1 TAB PO DAILY, (Reported) Entered as Reported by: CUCA HAWTHORNE on 01/24/19 1312 Past Pomobci-Spfnwi-Jwrgzj Hx Patient Social History Tobacco Use?: No Smoking Status: Never a Smoker Use of E-Cig and/or Vaping dev: No Substance use?: No Alcohol Use?: No Immunizations Up To Date First/Initial COVID19 Vaccinat: DECEMBER 2020 Second COVID19 Vaccination Christopher: DECEMBER 2020 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 Physical Exam Vital Signs Vital Signs - First Documented 08/03/21 18:44 Temp 37.4 Pulse 108 Resp 18 B/P (MAP) 121/82 (95) Pulse Ox 99 O2 Delivery Room Air Capillary Refill : Height, Weight, BMI Height: 5'0.00" Weight: 147lbs. 0.0oz. 66.553320bu; 19.00 BMI Method:Stated General Appearance: WD/WN, no apparent distress, thin Cardiovascular: regular rate, rhythm, no murmur Respiratory: normal breath sounds Gastrointestinal: soft, tenderness (VERY MILD SUPRAPUBIC TENDERNESS. ) Rectal: hemorrhoids, tenderness, other (SMALL FISSURE AT 1:00 ADJACENT TO SMALL HEMORRHOID AT 12:00, WITH SCANT AMOUNT OF BLOOD AT FISSURE SITE. ) Pelvic: No discharge, No tender uterus, No vaginal bleeding; other (ECTROPIC CERVIX. NO BLOOD FROM CERVIX OR IN VAGINA. POSTERIOR FOURCHETTE WITH MILD SUPERFICIAL INFLAMMATION AND SCANT AMOUNT OF BLOOD EXTERNALLY. 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, no motor/sensory deficits, alert, normal mood/affect, oriented x 3 Skin: normal color, warm/dry Progress/Results/Core Measures Suspected Sepsis SIRS Temperature: Pulse: Respiratory Rate: Laboratory Tests 08/03/21 19:11: White Blood Count 14.6H Blood Pressure / Mean: Laboratory Tests 08/03/21 19:11: Creatinine 0.64, Platelet Count 324 Results/Orders Lab Results Laboratory Tests Test 08/03/21 19:00 08/03/21 19:11 Range/Units Urine Color YELLOW Urine Clarity CLEAR Urine pH 6.0 5-9 Urine Specific [place] 1.010 L 1.016-1.022 Urine Protein NEGATIVE NEGATIVE Urine Glucose (UA) TRACE H NEGATIVE Urine Ketones NEGATIVE NEGATIVE Urine Nitrite NEGATIVE NEGATIVE Urine Bilirubin NEGATIVE NEGATIVE Urine Urobilinogen 0.2 < = 1.0 MG/DL Urine Leukocyte Esterase NEGATIVE NEGATIVE Urine RBC (Auto) NEGATIVE NEGATIVE Urine RBC NONE /HPF Urine WBC NONE /HPF Urine Crystals PRESENT H /LPF Urine Amorphous Sediment RARE [place] URATES H /LPF Urine Bacteria NEGATIVE /HPF Urine Casts NONE /LPF Urine Mucus NEGATIVE /LPF Urine Culture Indicated NO White Blood Count 14.6 H 4.3-11.0 10^3/uL Red Blood Count 3.75 L 3.80-5.11 10^6/uL Hemoglobin 12.0 11.5-16.0 g/dL Hematocrit 34 L 35-52 % Mean Corpuscular Volume 91 80-99 fL Mean Corpuscular Hemoglobin 32 25-34 pg Mean Corpuscular Hemoglobin Concent 35 32-36 g/dL Red Cell Distribution Width 12.8 10.0-14.5 % Platelet Count 324 130-400 10^3/uL Mean Platelet Volume 9.2 9.0-12.2 fL Sodium Level 138 135-145 MMOL/L Potassium Level 3.2 L 3.6-5.0 MMOL/L Chloride Level 105 98-107 MMOL/L Carbon Dioxide Level 20 L 21-32 MMOL/L Anion Gap 13 5-14 MMOL/L Blood Urea Nitrogen 9 7-18 MG/DL Creatinine 0.64 0.60-1.30 MG/DL Estimat Glomerular Filtration Rate 110 BUN/Creatinine Ratio 14 Glucose Level 91 70-105 MG/DL Calcium Level 9.3 8.5-10.1 MG/DL Human Chorionic Gonadotropin, Quant 58527 H <5 MIU/ML My Orders Orders - GENE BATISTA DO Straight Cath For Spec.-Adult (08/03/21 18:52) Cbc No Diff (08/03/21 18:52) Hcg,Quantitative (08/03/21 18:52) Ua Culture If Indicated (08/03/21 18:52) Heart Tones (08/03/21 19:10) Basic Metabolic Panel (08/03/21 19:38) Potassium Chloride (Tablet) (Klor Con Ta (08/03/21 20:15) Vital Signs/I&O 08/03/21 18:44 Temp 37.4 Pulse 108 Resp 18 B/P (MAP) 121/82 (95) Pulse Ox 99 O2 Delivery Room Air Capillary Refill : Progress Note : Progress Note CATH UA PERFORMED WITH >100 ML URINE OUT AND IMPROVEMENT IN BLADDER SYMPTOMS NO VAGINAL BLEEDING AT ANY TIME NO PAIN AT ANY TIME APPEARS THAT BLOOD ON TISSUE WITH WIPING THAT SHE HAD THIS MORNING WAS FROM EXTERNAL SOURCE/OUTSIDE THE VAGINA AND NOT FROM BLADDER/URETHRA--APPEARS TO BE FROM POSTERIOR FOURCHETTE AND/OR ANAL AREA/FISSURE. BLOOD TYPE IS O+ FHR 160 Departure Impression Primary Impression: 13 weeks gestation of Additional Impressions: Anal fissure Acute urinary retention URINARY RETENTION WITH INCOMPLETE EMPTYING IN Constipation Hypokalemia Disposition: 01 HOME, SELF-CARE Condition: Stable Departure-Patient Inst. Decision time for Depature: 20:02 Referrals: PHILIPP FROST MD (PCP/Family) Primary Care Physician Patient Instructions: Anal Fissure, Adult ED, Constipation, Adult (DC), How to Adapt to Physical Changes During , Hypokalemia (DC), - The Third Month, Urinary Retention (DC) Add. Discharge Instructions: OVER THE COUNTER MEDICATIONS SUCH PREPARATION H FOR HEMORRHOIDS AND ANAL FISSURE OVER THE COUNTER COLACE 2 PILLS DAILY TO SOFTEN STOOLS INCREASE YOUR FLUID AND FIBER INTAKE FOLLOW UP WITH DR. FROST IN THE NEXT FEW DAYS FOR FURTHER CARE--CALL ON THURSDAY MORNING TO SCHEDULE APPOINTMENT RETURN TO ER IF SYMPTOMS WORSEN All discharge instructions reviewed with patient and/or family. Voiced understanding. GENE BATISTA DO Aug 03, 2021 19:26
[2021-08-03 19:36] LABS: AMORPHOUS SEDIMENT,UR RARE AMOR URATES /LPF; BACTERIA,URINE NEGATIVE /HPF
[2021-08-03 20:01] LABS: CALCIUM 9.3 MG/DL (8.5-10.1); CREATININE SERUM 0.64 MG/DL (0.60-1.30); POTASSIUM 3.2 MMOL/L (3.6-5.0)
[2021-08-03 20:12] VITALS: BP 111/70
[2021-08-03] MEDS ORDERED: KCL 10 MEQ TAB (MICRO K) PO ONE (20:15)
== END 2021-08-03 20:12 | disposition home or self-care (01) ==
LOC: EDUNIT# 18:37 → ER 18:39
DX: O26.891 Other specified pregnancy related conditions, first trimester (principal); K60.2 Anal fissure, unspecified; R33.9 Retention of urine, unspecified; K59.00 Constipation, unspecified; E87.6 Hypokalemia; Z3A.13 13 weeks gestation of pregnancy
CPT/HCPCS: 36415; 51701; 80048; 81000; 84702; 85027

== ENCOUNTER → 2021-09-11 | Outpatient (CLI) | payer MEDICAID ==
--- NOTE | 2021-09-11 14:49 | Diagnostic Imaging Report ---
INDICATION: survey. TECHNIQUE: Multiple Real-time grayscale images were obtained over the gravid uterus. COMPARISON: None. FINDINGS: There is a single live fetus in a transverse presentation with the head to the maternal right. The heart rate was recorded at 150 BPM. The placenta is anterior. The amniotic fluid volume is normal. The cervical length is approximately 3.4 cm. The kidneys, bladder, and stomach are unremarkable. The brain is unremarkable. There is a four-chamber heart. There is a three-vessel cord with normal insertion. The spine is unremarkable. Biometrical measurements are as follows: Biparietal 4.55 cm, age 19 weeks 6 days. Head circumference 16.87 cm, age 19 weeks 4 days. Abdominal circumference 15.63 cm, age 20 weeks 6 days. Femur length 3.06 cm, age 19 weeks 4 days. Sonographic estimate age: 20 weeks 0 days. Sonographic estimated date of delivery: 01/29/2022. Estimated Weight: 332 gm (+/- 49 gm). LMP percentile: 88%. heart rate: 150 beats per minute. number: 1 of 1. IMPRESSION: Single live IUP of 20 weeks 0 days gestational age. The estimated date of confinement sonographically is 01/29/2022. Dictated by: Dictated on workstation # [id number]
== END ==
LOC: RAD 11:57
PROVIDERS: ATTEND Family Medicine
DX: Z34.92 Encounter for supervision of normal pregnancy, unspecified, second trimester (principal); Z3A.20 20 weeks gestation of pregnancy
CPT/HCPCS: 76805

== ENCOUNTER 2022-01-22 20:33 | Inpatient (IN) | payer MEDICAID ==
[2022-01-22] VITALS (16 sets, daily range): BP systolic 125–167; BP diastolic 81–102
[~2022-01-22] VITALS: Ht 152.4 cm; Wt 72.8 kg
[2022-01-22 21:08] LABS: BILIRUBIN,URINE NEGATIVE (NEGATIVE); CLARITY,URINE CLEAR; COLOR,URINE YELLOW; GLUCOSE, URINE (UA) NEGATIVE (NEGATIVE); KETONES,URINE NEGATIVE (NEGATIVE); LEUKOCYTE ESTERASE ,URINE NEGATIVE (NEGATIVE); NITRITE,URINE NEGATIVE (NEGATIVE); PROTEIN,URINE 1+ (NEGATIVE)
[2022-01-22 21:15] LABS: BACTERIA,URINE NEGATIVE /HPF; RBC,URINE 0-2 /HPF; SQUAMOUS EPITHELIAL CELL,UR 0-2 /HPF; WBC,URINE 0-2 /HPF
[2022-01-22] MEDS ORDERED: D5 LR IV SOLUTION 1,000 ML IV ONE (23:43)
[2022-01-22] MEDS: D5 LR IV SOLUTION 1,000 ML IV SCH (23:50)
[2022-01-23] VITALS (49 sets, daily range): BP systolic 112–164; BP diastolic 60–98
[2022-01-23 02:19] LABS: BASOPHILS # (AUTO) 0.1 10^3/uL (0.0-0.1); BASOPHILS % (AUTO) 1 % (0-10); EOSINOPHILS # (AUTO) 0.1 10^3/uL (0.0-0.3); EOSINOPHILS % (AUTO) 1 % (0-10); HEMATOCRIT 36 % (35-52); HEMOGLOBIN 12.2 g/dL (11.5-16.0); LYMPHOCYTES # (AUTO) 3.3 10^3/uL (1.0-4.0); LYMPHOCYTES % (AUTO) 25 % (12-44); MEAN CORPUSCULAR HEMOGLOBIN 32 pg (25-34); MEAN CORPUSCULAR HGB CONC 34 g/dL (32-36); MEAN CORPUSCULAR VOLUME 94 fL (80-99); MEAN PLATELET VOLUME 12.7 fL (9.0-12.2); MONOCYTES % (AUTO) 8 % (0-12); NEUTROPHILS # (AUTO) 8.4 10^3/uL (1.8-7.8); NEUTROPHILS % (AUTO) 65 % (42-75); PLATELET COUNT 190 10^3/uL (130-400); WHITE BLOOD COUNT 12.9 10^3/uL (4.3-11.0)
[2022-01-23] MEDS ORDERED: BUTORPHANOL INJ 2 MG/ML (STADOL) VIAL ONE (05:43)
[2022-01-23] MEDS ORDERED: BUTORPHANOL INJ 2 MG/ML (STADOL) VIAL IV PRN ×2 (05:45)
[2022-01-23] MEDS ORDERED: OXYTOCIN PRE-MIX DRIP 500 ML IV ONE (05:55)
[2022-01-23] MEDS ORDERED: CATHETER FLUSH 10 ML SYR IV SCH ×2 (06:00→14:00)
--- NOTE | 2022-01-23 06:43 | History & Physical-OB ---
OB - Chief Complaint & HPI Date/Time Date of Admission: Date of Admission: Jan 22, 2022 at 23:16 Date seen by a Provider: Jan 23, 2022 Time Seen by a Provider: 06:35 Chief Complaint/History OB-Reason for Admission/Chief: Onset of Labor Hx : 3 Hx Para: 2 Expected Date of Delivery: Feb 03, 2022 Gestational Age in Weeks: 38 Gestational Age in Days: 2 Admission Nurse Assessment Rev: Yes History of Labs GBS negative Allergies and Home Medications Allergies Coded Allergies: No Known Drug Allergies (Unverified , 07/07/09) Patient Home Medication List Home Medication List Reviewed: Yes Vit No.124/Iron/FA ( Vitamin Tablet) 1 Each Tablet, 1 TAB PO DAILY, (Reported) Entered as Reported by: CUCA HAWTHORNE on 01/24/191311 Last Action: Reviewed Discontinued Medications Ibuprofen (Ibu) 600 Mg Tablet, 600 MG PO Q6H Discontinued Reason: No Longer Taking Prescribed by: PHILIPP FROST on 01/26/19723 Last Action: Discontinued OB - History Hx of Present Care: Yes Ultrasounds: Normal mid trimester US Obstetrical Complications: None Medical Complications: None Obstetrical History Hx : 3 Hx Para: 2 Hx Total # of Abortions (Spona: 0 Delivery History Hx Blood Disorders: No Patient Past Medical History No chronic medical problems Social History/Family History Alcohol Use: Denies Use Recreational Drug Use: No 2nd Hand Smoke Exposure: No Immunizations Influenza Vaccine Up-to-Date: Yes; Up-to-Date First/Initial COVID19 Vaccine: DECEMBER 2020 Second COVID19 Vaccination: DECEMBER 2020 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 [employer] iza had 2 OB - Admission Exam Physical Exam Vitals: Vital Signs 01/22/22 01/23/22 21:00 05:30 Temp 36.4 Pulse 76 Resp 18 B/P (MAP) 123/81 (95) Pulse Ox 99 O2 Delivery Room Air HEENT: Moist Membranes Heart: Rhythm Normal Lungs: Clear Abdomen: Gravid Extremities: Normal Cervical Dilatation: 4cm Effacement: 75% Station: -3 Membranes: Ruptured Heart Rate: 130's Accelerations: Accelerations Present Short Term Variability: Present Fci Variability: Average (6-25) Contractions on Admission: 6-10 Minutes Apart Intensity: Mild Labs Laboratory Tests Test 01/22/22 20:45 01/22/22 23:30 Range/Units Urine Color YELLOW Urine Clarity CLEAR Urine pH 6.0 5-9 Urine Specific [place] >=1.030 1.016-1.022 Urine Protein 1+ H NEGATIVE Urine Glucose (UA) NEGATIVE NEGATIVE Urine Ketones NEGATIVE NEGATIVE Urine Nitrite NEGATIVE NEGATIVE Urine Bilirubin NEGATIVE NEGATIVE Urine Urobilinogen 0.2 < = 1.0 MG/DL Urine Leukocyte Esterase NEGATIVE NEGATIVE Urine RBC (Auto) TRACE-I H NEGATIVE Urine RBC 0-2 /HPF Urine WBC 0-2 /HPF Urine Squamous Epithelial Cells 0-2 /HPF Urine Renal Epithelial Cells NONE /HPF Urine Crystals NONE /LPF Urine Bacteria NEGATIVE /HPF Urine Casts NONE /LPF Urine Mucus SMALL H /LPF Urine Culture Indicated NO White Blood Count 12.9 H 4.3-11.0 10^3/uL Red Blood Count 3.84 3.80-5.11 10^6/uL Hemoglobin 12.2 11.5-16.0 g/dL Hematocrit 36 35-52 % Mean Corpuscular Volume 94 80-99 fL Mean Corpuscular Hemoglobin 32 25-34 pg Mean Corpuscular Hemoglobin Concent 34 32-36 g/dL Red Cell Distribution Width 13.7 10.0-14.5 % Platelet Count 190 130-400 10^3/uL Mean Platelet Volume 12.7 H 9.0-12.2 fL Immature Granulocyte % (Auto) 1 % Neutrophils (%) (Auto) 65 42-75 % Lymphocytes (%) (Auto) 25 12-44 % Monocytes (%) (Auto) 8 0-12 % Eosinophils (%) (Auto) 1 0-10 % Basophils (%) (Auto) 1 0-10 % Neutrophils # (Auto) 8.4 H 1.8-7.8 10^3/uL Lymphocytes # (Auto) 3.3 1.0-4.0 10^3/uL Monocytes # (Auto) 1.0 0.0-1.0 10^3/uL Eosinophils # (Auto) 0.1 0.0-0.3 10^3/uL Basophils # (Auto) 0.1 0.0-0.1 10^3/uL Immature Granulocyte # (Auto) 0.1 0.0-0.1 10^3/uL OB - Assessment/Plan/Diagnosis Assessment Assessment: other (onset of labor at term) Admission Dx 1. IUP at 38w2d on presentation in early labor 2. Borderline high blood pressure on admit Admission Status: Inpatient Order (span 2 midnights) Reason for Inpatient Admission: L&D Plan Plan: Expectant Management Other Plan -pitocin as necessary -she may desire an epidural PHILIPP FROST MD Jan 23, 2022 06:43
[2022-01-23] MEDS ORDERED: OXYTOCIN PRE-MIX DRIP 500 ML IV SCH ×3 (06:45→11:45)
[2022-01-23] MEDS ORDERED: LACTATED RINGERS 1,000 ML IV ONE ×3 (07:30→08:45)
[2022-01-23] MEDS ORDERED: fentaNYL 2 mcg/ml BUPIVA 0.125 100 ML ONE (07:33)
[2022-01-23] MEDS: D5 LR IV SOLUTION 1,000 ML IV SCH (07:48)
[2022-01-23] MEDS ORDERED: fentaNYL INJ 100 MCG/2 ML AMP ONE (08:17)
[2022-01-23] MEDS ORDERED: BUPIVACAINE 0.25% 10 ML (SENSORCAINE) VIAL ONE (08:18)
[2022-01-23] MEDS ORDERED: NALOXONE 0.4 MG/ML 1 ML (NARCAN) VIAL IV PRN ×2 (08:45→11:45)
[2022-01-23] MEDS ORDERED: fentaNYL INJ 100 MCG/2 ML AMP INJ ONE (08:45)
[2022-01-23] MEDS ORDERED: ONDANSETRON 4 MG/2 ML (SDV) Z0FRAN IV PRN (08:45)
[2022-01-23] MEDS ORDERED: EPIDURAL (fentaNYL 2 MCG/ML BUPIVA 0.125%)100 ML BAG EPI PRN (08:45)
[2022-01-23] MEDS ORDERED: MEPIVACAINE (CARBOCAINE) 2% 50 ML VIAL ONE (10:33)
[2022-01-23] MEDS ORDERED: BENZOCAINE/MENTHOL (DERMOPLAST) 56 ML CAN TP PRN (11:45)
[2022-01-23] MEDS ORDERED: TETANUS,DIPTH,PERTUSS P/F (BOOSTRIX) 0.5 ML VIAL IM ONE (11:45)
[2022-01-23] MEDS ORDERED: WITCH HAZEL(TUCKS) 40 EA JAR TOP PRN (11:45)
[2022-01-23] MEDS ORDERED: MEASLES,MUMPS,RUBELLA 1 EA INJ SQ ONE (11:45)
--- NOTE | 2022-01-23 11:52 | OB Labor & Delivery Record ---
L&D History Date of Service Date of Service: Jan 23, 2022 History Expected Date of Delivery: Feb 03, 2022 Gestational Age in Weeks: 38 Hx : 3 Hx Para: 3 Complications Events: Routine care Operative Indications (Cesarea: N/A-Vaginal Delivery Intrapartal Events: None L&D Stage1 Stage One Onset of Labor - Date: Jan 23, 2022 Onset of Labor - Time: 06:05 Monitors and Tracing Monitor Mode: Internal Heart Rate: 120 Monitor Accelerations: Uniform Monitor Decelerations: None Station: -3 Analytical Clerk Variability: Average (6-10) Short Term Variability: Present Presentation: Vertex Vital Signs VS - Last 72 Hours, by Label 01/22/22 01/22/22 01/22/22 01/22/22 20:48 20:51 20:53 21:00 Temp 36.4 36.4 36.4 Pulse 85 90 101 90 Resp 18 18 18 18 B/P (MAP) 167/94 (118) 147/102 (117) Pulse Ox 99 99 98 99 O2 Delivery Room Air Room Air Room Air Room Air 01/22/22 01/22/22 01/22/22 01/22/22 21:03 21:13 21:23 21:33 Pulse 88 86 75 78 Resp 18 18 18 18 B/P (MAP) 142/100 (114) 142/98 (113) 140/91 (107) 137/90 (106) O2 Delivery Room Air Room Air Room Air Room Air 01/22/22 01/22/22 01/22/22 01/22/22 21:43 21:53 22:13 22:23 Pulse 91 79 90 87 Resp 18 18 18 18 B/P (MAP) 133/91 (105) 134/93 (107) 133/93 (106) 125/81 (96) O2 Delivery Room Air Room Air Room Air Room Air 01/22/22 01/22/22 01/22/22 01/22/22 22:33 22:43 22:53 23:03 Pulse 110 85 81 75 Resp 18 18 18 18 B/P (MAP) 126/90 (102) 133/85 (101) 125/84 (98) 136/84 (101) O2 Delivery Room Air Room Air Room Air Room Air 01/23/22 01/23/22 01/23/22 01/23/22 00:30 01:00 01:30 02:00 Temp 36.5 Pulse 82 77 Resp 18 18 18 18 B/P (MAP) 127/82 (97) 114/67 (83) O2 Delivery Room Air Room Air Room Air Room Air 01/23/22 01/23/22 01/23/22 01/23/22 02:30 03:00 03:30 04:00 Pulse 71 85 Resp 18 18 18 18 B/P (MAP) 121/71 (88) 126/60 (82) O2 Delivery Room Air Room Air Room Air Room Air 01/23/22 01/23/22 01/23/22 01/23/22 04:30 05:00 05:30 06:00 Temp 36.4 Pulse 82 76 Resp 18 18 18 18 B/P (MAP) 112/81 (91) 123/81 (95) O2 Delivery Room Air Room Air Room Air Room Air 01/23/22 01/23/22 01/23/22 01/23/22 06:30 07:00 07:15 07:30 Temp 36.8 Pulse 104 83 82 Resp 18 18 18 18 B/P (MAP) 134/79 (97) 133/83 (100) 139/86 (103) O2 Delivery Room Air Room Air Room Air Room Air 01/23/22 01/23/22 01/23/22 01/23/22 07:45 08:00 08:15 08:25 Pulse 73 71 86 78 Resp 18 18 18 18 B/P (MAP) 135/85 (102) 143/94 (110) 164/92 (116) 144/84 (104) Pulse Ox 98 O2 Delivery Room Air Room Air Room Air Room Air 01/23/22 01/23/22 01/23/22 01/23/22 08:30 08:35 08:40 08:45 Temp 36.8 Pulse 88 70 86 106 Resp 18 18 18 18 B/P (MAP) 153/87 (109) 135/98 (110) 137/98 (111) Pulse Ox 98 98 97 97 O2 Delivery Room Air Room Air Room Air Room Air 01/23/22 01/23/22 01/23/22 01/23/22 08:47 08:51 08:55 08:58 Pulse 77 82 90 92 Resp 18 18 18 18 B/P (MAP) 135/80 (98) 130/80 (97) 118/75 (89) 120/80 (93) Pulse Ox 97 97 97 97 O2 Delivery Room Air Room Air Room Air Room Air 01/23/22 01/23/22 01/23/22 01/23/22 09:00 09:03 09:06 09:09 Pulse 83 82 68 90 Resp 18 18 18 18 B/P (MAP) 122/81 (95) 123/88 (100) 126/85 (99) 128/89 (102) Pulse Ox 96 97 97 98 O2 Delivery Room Air Room Air Room Air Room Air 01/23/22 01/23/22 01/23/22 01/23/22 09:12 09:15 09:20 09:28 Pulse 104 73 79 103 Resp 18 18 18 18 B/P (MAP) 126/91 (103) 134/83 (100) 126/91 (103) 117/73 (88) Pulse Ox 98 98 98 98 O2 Delivery Room Air Room Air Room Air Room Air 01/23/22 01/23/22 01/23/22 01/23/22 09:30 09:38 09:41 09:45 Pulse 100 104 90 105 Resp 18 18 18 18 B/P (MAP) 119/80 (93) 113/81 (92) 112/81 (91) Pulse Ox 98 98 98 98 O2 Delivery Room Air Room Air Room Air Room Air 01/23/22 01/23/22 01/23/22 01/23/22 09:47 09:51 09:55 10:00 Pulse 86 86 96 86 Resp 18 18 18 18 B/P (MAP) 133/81 (98) 125/79 (94) 129/87 (101) 134/83 (100) Pulse Ox 98 98 98 O2 Delivery Room Air Room Air Room Air Room Air 01/23/22 01/23/22 01/23/22 01/23/22 10:15 10:30 10:45 10:55 Pulse 78 96 127 162 Resp 18 18 18 18 B/P (MAP) 119/70 (86) 151/66 (94) 141/88 (105) 130/71 (90) O2 Delivery Room Air Room Air Room Air Room Air Rupture of Membranes Spontaneous Ruture of Membrane: Yes Amniotic Membrane Rupture Time: 0605 Amniotic Membrane Fluid Desc.: Clear Induction/Anesthesia Epidural Cath Placement - Time: 0830 L&D Stage2 Stage Two Stage II Date: Jan 23, 2022 Stage II Time: 10:55 Monitors and Tracing Monitor Mode: Internal Heart Rate: 120 Monitor Accelerations: Uniform Monitor Decelerations: None Analytical Clerk Variability: Average (6-10) Short Term Variability: Present Position: Left Occiput Anterior Presentation: Vertex Cord Descript/Complications Cord Vessel Description: 3 Vessels Delivery Type Delivery Method: Spontaneous Vaginal Anterior Shoulder: Left Episiotomy/Perineal Laceration Laceraction(s)/Extensions: No Condition of Delivery 1 minute Comment: 8 5 minute Comment: 9 Condition of Infant Condition of Infant: Living Exam: No Observed Abnormalities Resuscitation Resuscitation: N/A - Spontaneous Resp L&D Stage3 Stage Three Stage III Date: Jan 23, 2022 Stage III Time: 10:59 Pictocin Pitocin Administration mu/min: 6 Pitocin ml/hr: 6 Pitocin Administration Comment: 0748 pitocin increased Placenta Delivery Placenta Delivery: Spontaneous Delivery Summary Summary Estimated blood loss (mL): 200 Condition of Delivery Examined: Cervix Examined Post Hemorrhage: No Intervention Required none PHILIPP FROST MD Jan 23, 2022 11:52
[2022-01-23] MEDS ORDERED: IBUPROFEN 600 MG (MOTRIN) TAB PO ONE (12:00)
[2022-01-23] MEDS ORDERED: ACETAMINOPHEN 500 MG TAB (TYLENOL) ONE (12:00)
[2022-01-23] MEDS: ACETAMINOPHEN 500 MG TAB (TYLENOL) PO SCH ×2 (12:01→18:19)
[2022-01-23] MEDS: IBUPROFEN 600 MG (MOTRIN) TAB PO SCH ×3 (12:01→23:36)
[2022-01-23] MEDS: DOCUSATE SODIUM 100 MG (COLACE) CAP PO SCH (20:16)
[2022-01-24] MEDS: ACETAMINOPHEN 500 MG TAB (TYLENOL) PO SCH ×3 (01:30→14:58)
[2022-01-24 05:40] VITALS: BP 116/78
[2022-01-24] MEDS: IBUPROFEN 600 MG (MOTRIN) TAB PO SCH ×2 (05:40→13:24)
[2022-01-24 06:02] LABS: BASOPHILS # (AUTO) 0.1 10^3/uL (0.0-0.1); BASOPHILS % (AUTO) 1 % (0-10); EOSINOPHILS # (AUTO) 0.2 10^3/uL (0.0-0.3); EOSINOPHILS % (AUTO) 1 % (0-10); HEMATOCRIT 33 % (35-52); HEMOGLOBIN 10.9 g/dL (11.5-16.0); LYMPHOCYTES # (AUTO) 3.3 10^3/uL (1.0-4.0); LYMPHOCYTES % (AUTO) 27 % (12-44); MEAN CORPUSCULAR HEMOGLOBIN 32 pg (25-34); MEAN CORPUSCULAR HGB CONC 34 g/dL (32-36); MEAN CORPUSCULAR VOLUME 94 fL (80-99); MEAN PLATELET VOLUME 11.4 fL (9.0-12.2); MONOCYTES # (AUTO) 0.7 10^3/uL (0.0-1.0); MONOCYTES % (AUTO) 6 % (0-12); NEUTROPHILS # (AUTO) 8.1 10^3/uL (1.8-7.8); NEUTROPHILS % (AUTO) 65 % (42-75); PLATELET COUNT 166 10^3/uL (130-400); WHITE BLOOD COUNT 12.4 10^3/uL (4.3-11.0)
--- NOTE | 2022-01-24 06:42 | Discharge Summary ---
Diagnosis/Chief Complaint Date of Admission Jan 22, 2022 at 23:16 Date of Discharge Discharge Date: Jan 24, 2022 Admission Diagnosis Admission Diagnosis 1. Intrauterine at 38 weeks gestation Discharge Diagnosis 1. Intrauterine at 38 weeks gestation Reason Hospital Visit 31-year-old 3 now term 3 who initially presented to labor and delivery at 38-1/2 weeks gestation with occasional uterine contraction. She presented on the evening of January 22 and was noted to be lori about every 3 to 5 minutes. She was monitored over the early a.m. of January 23 and found to be in a contraction pattern. She was admitted for labor. Her GBS status was noted to be negative Discharge Summary-OBS Procedures 1. Epidural per anesthesia 2. Spontaneous vaginal delivery Discharge Physical Examination Allergies: Coded Allergies: No Known Drug Allergies (Unverified , 07/07/09) Vitals & I&Os Vital Signs Date Time Temp Pulse Resp B/P (MAP) Pulse Ox O2 Delivery O2 Flow Rate FiO2 01/24/22 05:40 36.4 70 18 116/78 (91) 98 Room Air General Appearance: No Acute Distress Respiratory: Clear to Auscultation Cardiovascular: Regular Rate Abdominal: Normal Bowel Sounds, Soft (with uterus firm) Hospital Course Patient was admitted during the of January 22, 2022 for induction of labor. She tolerated Cytotec and was noted to have a contraction pattern. Ultimately she developed a contraction pattern and was noted to begin dilating. At 06 30 on January 23 she was noted be 1 cm dilated. She underwent amniotomy with placement of scalp electrode. Ultimately she requested an epidural and this was given with excellent results. Ultimately she required Pitocin augmentation and went on to completion. She delivered a term viable male during the afternoon of January 23, 2022. received Apgars of 8 and 9 at 5 minutes. See labor and delivery note for full details. Following delivery she underwent routine care orders. She had no complications during the remainder of hospital stay. She was noted to hemoglobin in the morning of January 24 of 10.9 and this was compared to admission of 12.2. She was without any chest pain or leg pain. She tolerated regular diet and was felt ready for dismissal on January 24, 2022. All questions were answered. Pending Labs Laboratory Tests 01/24/22 05:35: White Blood Count 12.4, Red Blood Count 3.45, Hemoglobin 10.9, Hematocrit 33, Mean Corpuscular Volume 94, Mean Corpuscular Hemoglobin 32, Mean Corpuscular Hemoglobin Concent 34, Red Cell Distribution Width 13.6, Platelet Count 166, Mean Platelet Volume 11.4, Immature Granulocyte % (Auto) 1, Neutrophils (%) (Auto) 65, Lymphocytes (%) (Auto) 27, Monocytes (%) (Auto) 6, Eosinophils (%) (Auto) 1, Basophils (%) (Auto) 1, Neutrophils # (Auto) 8.1, Lymphocytes # (Auto) 3.3, Monocytes # (Auto) 0.7, Eosinophils # (Auto) 0.2, Basophils # (Auto) 0.1, Immature Granulocyte # (Auto) 0.1 Discharge Instructions to patient/family Please see electronic discharge instructions given to patient. Discharge Medications Reviewed and agree with Discharge Medication list on patient's Discharge Instruc tion sheet PHILIPP FROST MD Jan 24, 2022 06:42
--- NOTE | 2022-01-24 06:44 | Discharge Inst-Women's Service ---
Discharge Inst-Women's Serv Depart Medication/Instructions New, Converted or Re-Newed RX: Other Instructions May take ibuprofen [id number] 3 200 mg tablets every 6 hours as needed for cramps Problems Reviewed?: Yes Consults/Follow Up Additional Follow Up: Yes ( In 6 weeks) Activity Driving Instructions: No Driving for 1 Week Nothing Inside Vagina: No [place] (For 6 weeks) Diet Discharge Diet: Regular Diet Return to The Hospital For: As below Symptoms to Report to : Bleeding Excessive, Fever Over 101 Degrees F, Vaginal Discharge Foul For Any Problems or Questions: Contact Your Physician PHILIPP FROST MD Jan 24, 2022 06:44
[2022-01-24] MEDS ORDERED: PRENATAL VITAMIN 1 EA TAB PO SCH (07:00)
[2022-01-24 08:30] VITALS: BP 121/59
[2022-01-24] MEDS: DOCUSATE SODIUM 100 MG (COLACE) CAP PO SCH (08:38)
[2022-01-24 13:15] VITALS: BP 117/74
--- NOTE | 2022-01-24 14:17 | Anesthesia-Regional Post-Op ---
Regional Patient Condition Mental Status: Alert, Oriented x3 Circulation: Same as Pre-Op Headache: Absent Sensation: Full Recovery Motor Block: Absent Post Op Complications Complications None Follow Up Care/Instructions Patient Instructions None needed. Anesthesia/Patient Condition Patient is doing well, no complaints, stable vital signs, no apparent adverse anesthesia problems. MEDARDO LOZANO DO Jan 24, 2022 14:17
[2022-01-24 16:45] VITALS: BP 117/74
== END 2022-01-24 16:45 | disposition home or self-care (01) | DRG 807 ==
LOC: WSo 20:33 → LDRP 20:33 → WSo 23:15 → LDRP 23:16
PROVIDERS: ADMIT Family Medicine; ATTEND Family Medicine
PROC: 10E0XZZ Delivery of Products of Conception, External Approach (ICD-10-PCS; principal; 2022-01-23)
DX: O80 Encounter for full-term uncomplicated delivery (principal); Z37.0 Single live birth; R03.0 Elevated blood-pressure reading, without diagnosis of hypertension; Z3A.38 38 weeks gestation of pregnancy
CPT/HCPCS: 36415; 81000; 85025; 86850; 86900; 86901; 99212

== ENCOUNTER → 2023-02-23 | Outpatient (CLI) | payer MEDICAID ==
--- NOTE | 2023-02-23 09:16 | Diagnostic Imaging Report ---
INDICATION: Left lower quadrant abdominal pain. PROCEDURE: Ultrasound abdomen complete. TECHNIQUE: Multiple real-time grayscale images were obtained of the abdomen in various projections. Liver is normal in size 16 cm. The portal vein is patent and shows normal direction of flow. No liver mass is identified. Gallbladder is without stones or sludge. There is no wall thickening or biliary duct dilatation. Pancreas unremarkable. Spleen is normal in size at 8.6 cm. Aorta is nonaneurysmal. IVC is patent. Both right and left kidneys without calculi or hydronephrosis. There is no ascites. IMPRESSION: Unremarkable complete abdominal ultrasound. Dictated by: Dictated on workstation # [id number]
== END ==
LOC: RAD 08:10
PROVIDERS: ATTEND Family Medicine
DX: R10.32 Left lower quadrant pain (principal)
CPT/HCPCS: 76700

== ENCOUNTER 2023-02-27 05:32 | Outpatient (CLI) | payer MEDICAID ==
[~2023-02-27] VITALS: Ht 152.4 cm; Wt 57.2 kg
== END 2023-03-02 11:24 | disposition home or self-care (01) ==
LOC: PREOP 05:32
PROVIDERS: ATTEND Surgery
DX: Z01.818 Encounter for other preprocedural examination (principal)

== ENCOUNTER 2023-03-09 10:58 | Day surgery (SDC) | payer MEDICAID ==
[~2023-03-09] VITALS: Ht 152.4 cm; Wt 57.2 kg
[2023-03-09] MEDS ORDERED: LACTATED RINGERS 1,000 ML IV STA (11:09)
[2023-03-09 11:25] VITALS: BP 107/67
--- NOTE | 2023-03-09 11:51 | Progress Note-Pre Operative ---
Pre-Operative Progress Note Date of Available H&P: Feb 26, 2023 Date H&P Reviewed: March 09, 2023 Time H&P Reviewed: 11:50 History & Physical: H&P Reviewed, Patient Examed, No changes noted Pre-Operative Diagnosis: rectal bleed KAREN KIRKPATRICK DO March 09, 2023 11:51
[2023-03-09] MEDS ORDERED: MIDAZOLAM 2 MG/2 ML (VERSED) VIAL ONE (11:57)
[2023-03-09] MEDS ORDERED: PROPOFOL INJECTION 50 ML IV ONE (11:57)
[2023-03-09 12:25] VITALS: BP 83/54
--- NOTE | 2023-03-09 12:29 | Endoscopy Discharge Instruct ---
Endo Procedure/Findings Findings 1.: Polyp 2.: Internal Hemorrhoids Discharge Instructions - Activity: You might feel a little sleepy until tomorrow. This is due to the medicine you received to relax you. Until tomorrow, you should: NOT drive a car, operate machinery or power tools. NOT drink any alcoholic beverages. NOT make any important decisions or sign importortant papers. Do not return to work until tomorrow, unless otherwise instructed. Resume previous activities tomorrow. Diet: Start by taking liquids. If you tolerate liquids, advance to solid food. 1.: Colonoscopy in 1 year Notify Physician - If you experience excessive bleeding, unusual abdominal pain, fever, or chest pain, contact your doctor immediately. Follow-Up: Other Follow up in my office in one week KAREN KIRKPATRICK DO March 09, 2023 12:29
--- NOTE | 2023-03-09 12:29 | Progress Note-Post Operative ---
Post-Operative Progess Note Surgeon (s)/Clinical Services Consultant (s) Surgeon KAREN KIRKPATRICK DO Clinical Services Consultant: KARUNA Saxena student Pre-Operative Diagnosis rectal bleed Post-Operative Diagnosis Rectal polyp int hemorrhoids Procedure & Operative Findings Date of Procedure 03/09/23 Procedure Performed/Findings Colonoscopy with snare polypectomy PROCEDURE NOTE: After informed consent was obtained, the patient was brought to the endoscopy suite, placed in bed in left lateral decubitus position. She was administered IV sedation by the CONSTITUTIONAL [employer] PROFESSOR who then monitored her vitals the entire time, heart rate, blood pressure and pulse ox and the scope was inserted, pushed all the way to about 130 cm and pushed into the cecum, took a picture of appendiceal orifice and noted the ileocecal valve. Then slowly withdrew the scope insufflating to look circumferentially at the schmitt starting in the cecum, up the ascending colon to the hepatic flexure, then down the transverse colon, splenic flexure, into the descending colon down in the sigmoid and then into the rectum. On the way in I had seen a very large polyp somewhere between 15-20cm. I used a snare and took this polyp off in 2 pieces, because of the long stalk. I got the polyp and then second piece got more polyp and part of the stalk. Finally into the rectal vault and retroflexed the scope. Took a picture of the internal hemorrhoids. The patient tolerated the procedure. She was recovered in endoscopy suite. Recommended for repeat colonoscopy in 1 years. Anesthesia Type IV sedation by CONSTITUTIONAL LAW PROFESSOR Estimated Blood Loss Estimated blood loss (mL): scant Specimens/Packing Specimens Removed rectal polyp KAREN KIRKPATRICK DO March 09, 2023 12:29
[2023-03-09 12:30] VITALS: BP 93/63
--- NOTE | 2023-03-09 13:00 | Anesthesia-General Post-Op ---
MAC Patient Condition Mental Status/LOC: Same as Preop Cardiovascular: Satisfactory Nausea/Vomiting: Absent Respiratory: Satisfactory Pain: Controlled Complications: Absent Post Op Complications Complications None Follow Up Care/Instructions Patient Instructions None needed. Anesthesiology Discharge Order Discharge Order Patient is doing well, no complaints, stable vital signs, no apparent adverse anesthesia problems. No complications reported per nursing. JAZMINE PERES CRNA March 09, 2023 13:00
[2023-03-09 13:05] VITALS: BP 93/63
== END 2023-03-09 13:05 | disposition home or self-care (01) ==
LOC: ENDO 10:58
PROVIDERS: ATTEND Surgery
DX: D12.8 Benign neoplasm of rectum (principal); K64.8 Other hemorrhoids; Z87.891 Personal history of nicotine dependence
CPT/HCPCS: 84703